=== PATIENT | male | born 1970 | race Caucasian/White ===

== ENCOUNTER 2019-01-15 14:56 | Emergency (ER) | payer OTHER ==
[~2019-01-15] VITALS: Ht 185.4 cm; Wt 113.4 kg
[2019-01-15 21:03] VITALS: BP 126/62
== END 2019-01-15 21:05 | disposition home or self-care (01) ==
LOC: ER 15:04
DX: R10.33 Periumbilical pain (principal); I10 Essential (primary) hypertension
CPT/HCPCS: 74176